=== PATIENT | male | born 1995 | race African-American/Black ===

== ENCOUNTER 2024-07-22 17:21 | Inpatient (IN) | payer OTHER ==
[2024-07-22 17:43] VITALS: BMI 18.0
[2024-07-22] MEDS ORDERED: NICOTINE POLACRILEX 2 MG GUM BUC PRN (19:00)
[2024-07-22] MEDS ORDERED: POLYETHYLENE GLYCOL (HEALTHYLAX) 3350 17 GM PACKET PO PRN (19:00)
[2024-07-22] MEDS ORDERED: NALOXONE (NARCAN) HCL 4 MG/0.1 ML SPRAY NS PRN (19:00)
[2024-07-22] MEDS ORDERED: hydrOXYzine PAMOATE 25 MG CAPSULE (FP) PO PRN (19:00)
[2024-07-22] MEDS ORDERED: ACETAMINOPHEN 325 MG TABLET (FP) PO PRN (19:00)
[2024-07-22] MEDS ORDERED: guaiFENesin 600 MG TABLET.ER (FP) PO PRN (19:00)
[2024-07-22] MEDS ORDERED: ONDANSETRON *ODT* 4 MG TABLET SL PRN (19:00)
[2024-07-22] MEDS ORDERED: NICOTINE POLACRILEX 2 MG LOZENGE BC PRN (19:00)
[2024-07-22] MEDS ORDERED: BENZOCAINE/MENTHOL (CHLORASEPTIC ) LOZENGE MM PRN (19:00)
[2024-07-22] MEDS ORDERED: IBUPROFEN 400 MG TABLET (FP) PO PRN (19:00)
[2024-07-22] MEDS ORDERED: BISMUTH SUBSALICYLATE 524 MG/30 ML PO PRN (19:00)
[2024-07-22] MEDS ORDERED: MAGNESIUM HYDROX 2400MG/30ML ORAL SUSPENSION 30 ML CUP PO PRN (19:00)
[2024-07-22] MEDS ORDERED: METHOCARBAMOL 500 MG TABLET PO PRN (19:00)
[2024-07-22] MEDS ORDERED: LOPERAMIDE HCL 2 MG CAPSULE PO PRN (19:00)
[2024-07-22] MEDS ORDERED: IBUPROFEN 600 MG TABLET (FP) PO PRN (19:00)
[2024-07-22] MEDS ORDERED: MAG HYDROX/AL HYDROX/SIMETH 30 ML UNIT-DOSE CUP PO PRN (19:00)
[2024-07-22] MEDS ORDERED: BENZONATATE 200 MG CAPSULE PO PRN (19:00)
[2024-07-22] MEDS ORDERED: DICYCLOMINE HCL 10 MG CAPSULE PO PRN (19:00)
[2024-07-22] MEDS: THIAMINE 100 MG TABLET PO SCH (23:23)
[2024-07-22] MEDS: MELATONIN 5 MG TABLETS PO SCH (23:23)
[2024-07-23 09:16] VITALS: RESP 18
[2024-07-23] MEDS: PRENATAL VITAMINS W/ FOLIC ACID TABLET (FP) PO SCH (10:17)
[2024-07-23 11:15] LABS: HEMATOCRIT 40.7 % (40.1-51.0); HEMOGLOBIN 13.4 g/dL (13.7-17.5); MCHC 32.9 g/dl (32.3-36.5); MEAN CELL VOLUME 73.3 fl (79.0-92.2); MEAN PLT VOLUME 9.7 fl (9.4-12.4); PLATELET COUNT 460 x10^3/uL (163-337); RDW 14.2 % (11.9-15.3)
[2024-07-23 12:01] LABS: CALCIUM 9.4 mg/dL (8.5-10.1)
[2024-07-23 12:02] LABS: BLOOD UREA NITROGEN 14.8 mg/dL (7-18)
[2024-07-23 12:05] LABS: CREATININE 0.7 mg/dL (0.55-1.3)
[2024-07-23 12:06] LABS: BILIRUBIN,TOTAL 0.9 mg/dL (0.2-1)
[2024-07-23 12:07] LABS: TOT PROT 6.9 g/dl (6.4-8.2)
[2024-07-23] MEDS ORDERED: cloNIDine HCL 0.1 MG TABLET PO PRN (15:11)
[2024-07-23] MEDS ORDERED: methaDONE HCL 10 MG TABLET (FOR DETOX USE ONLY) PO PRN (15:11)
[2024-07-23] MEDS: methaDONE HCL 10 MG TABLET (FOR DETOX USE ONLY) PO ONE (15:23)
[2024-07-23 17:41] VITALS: BP 102/88; PULSE 88; TEMP 97.7
[2024-07-25] MEDS ORDERED: methaDONE HCL 10 MG TABLET (FOR DETOX USE ONLY) PO ONE (10:00)
[2024-07-27] MEDS ORDERED: methaDONE HCL 10 MG TABLET (FOR DETOX USE ONLY) PO ONE (10:00)
== END 2024-07-23 18:30 | disposition left against medical advice (07) | DRG 770 ==
LOC: YASAS 17:21 → UNDOADMIN 19:41 → Y6N 19:41 → UNDODISIN 07-23 18:30
PROVIDERS: ADMIT Allergy & Immunology; ATTEND Allergy & Immunology
PROC: HZ2ZZZZ Detoxification Services for Substance Abuse Treatment (ICD-10-PCS; principal; 2024-07-22)
DX: F11.10 Opioid abuse, uncomplicated (principal); F14.20 Cocaine dependence, uncomplicated; F17.210 Nicotine dependence, cigarettes, uncomplicated; F19.282 Other psychoactive substance dependence with psychoactive substance-induced sleep disorder
CPT/HCPCS: 36415; 80053; 80305; 80307; 85027; 86780; 93005; 93010